=== PATIENT | female | born 2005 | race Caucasian/White ===

== ENCOUNTER 2025-01-30 02:48 | Observation (INO) ==
--- NOTE | 2025-01-30 03:14 | Emergency Department Note ---
Impression & Plan Vaginal laceration ED Provider Note CHIEF COMPLAINT: Vaginal bleeding HISTORY OF PRESENTING ILLNESS: The patient is a pleasant, 19-year-old female who arrives to the emergency department for evaluation of persistent severe vaginal bleeding. Patient reports she had intercourse for the first time earlier in the day, when she began to have heavy bleeding. She states she does believe she is to start her menstrual cycle, however, this is more severe than her normal cycle. She reports she has been having very large clots, and is soaking multiple pads. She denies pelvic pain, nausea, vomiting, or dysuria. She is well appearing, with tachycardia and otherwise stable vital signs. REVIEW OF SYSTEMS: See HPI for pertinent positives and pertinent negatives. ALLERGIES: See below MEDICATIONS: See below PAST MEDICAL HISTORY: See below PHYSICAL EXAM: VITALS: Vitals are noted on the nurse's note and reviewed by myself. Vital signs stable. GENERAL: 19-year-old female, in no acute distress, nondiaphoretic, well- developed well-nourished. SKIN: The skin was without rashes, erythema, edema, or bruising. HEAD: Normocephalic atraumatic. HEART: Tachycardia with regular rhythm without murmurs gallops or rubs. LUNGS: Clear to auscultation bilaterally without wheezes, rales or rhonchi. No retractions or accessory muscle use. ABDOMEN: Positive bowel sounds x 4. Soft, nontender, without masses or organomegaly. Fisher sign negative. No guarding or rebound tenderness. : Supervisor Shearing at bedside. Pelvic examination performed with blood pooling in the vaginal canal, laceration present to the left lateral vaginal wall, with active bleeding noted. MUSCULOSKELETAL: No muscle atrophy, erythema, or edema noted. Normal gait. Strength 5/5 throughout. NEURO: Patient was alert and oriented to person place and time. No focal neurological deficits. DIFFERENTIAL DIAGNOSIS: Etiologies such as threatened AB, miscarriage, ectopic , dysfunction uterine bleeding, bleeding dyscrasia, trauma, infection, as well as others were entertained. ED COURSE AND MEDICAL DECISION MAKING: MEDICATIONS GIVEN: 1 L NSS bolus, 4 mg IV morphine, 4 mg IV Zofran MONITOR: Continuous cardiac technician: Order was placed for continuous cardiac technician. Patient was placed on the cardiac technician and continuous pulse ox. Patient was noted to be in normal sinus rhythm at an initial rate of 130 bpm per my interpretation. INTERPRETATION OF LABS: I interpreted the labs with full lab results as below in the lab section of this note. Pertinent lab results discussed in the MDM section below. INTERPRETATION OF IMAGING: Imaging studies were interpreted by myself and read by radiology as per the imaging section of this note. CONSULTATIONS: Dr. Castelan, SERVICE CENTER COORDINATOR [facility] SUMMARY: The patient is a pleasant, 19-year-old female who arrives to the emergency department for evaluation of the above-stated complaint. Saline lock was established, lab work was obtained. CBC shows no leukocytosis, hemoglobin 11.4, hematocrit 35.6. CMP shows slight hypokalemia 3.4, otherwise unremarkable. hCG qualitative negative. Pelvic ultrasound imaging was obtained with findings consistent with likely large clot or hematoma which is displacing the uterus to the right. Pelvic examination was performed with nursing staff at bedside. Blood pooling noted in the vaginal canal, after using suction, there is a large visible laceration present to the left lateral vaginal wall with active bleeding noted. At that time I consulted SERVICE CENTER COORDINATOR, who was able to evaluate the patient at bedside. An attempt was made by SERVICE CENTER COORDINATOR, to repair the laceration at bedside, however the patient was unable to tolerate the procedure. She was provided IV morphine for pain. Decision was made to take the patient to the OR for better comfort and visualization of the patient and procedure. The patient stood up with nursing staff at bedside, and was able to ambulate into the restroom. While in the restroom, the patient had a syncopal episode causing her to fall and hit her face. The patient was assisted back to the bed. Event report was submitted. Head CT and face CT imaging was obtained which per my interpretation shows no ICH, fracture, or otherwise acute abnormality. The patient was transferred to the OR by OR staff, please refer to their documentation, as well as Dr. Castelan's documentation for further patient workup and care. DIAGNOSIS: Vaginal laceration The chart was completed utilizing [employer] Speech voice recognition software. Grammatical errors, random word insertions, pronoun errors, and incomplete sentences are an occasional consequence of this system due to software limitations, ambient noise, and hardware issues. Any formal questions or concerns about the content, text, or information contained within the body of this dictation should be directly addressed to the provider for clarification. Past Med/Surg History Problem List (Updated 02/02/25 @ 03:28 by AUSTIN Parikh) Vaginal laceration (Acute) Social History Smoking Status: Never smoker Tobacco Cessation Education Requested by Patient: No Hx Alcohol Use: No Hx Substance Use: No Preferred Language: [place] Communication Ability: Effective Medical Imaging Technologist Required: No Beliefs That Will Affect Care: None Current Living Situation: Spouse Feels Safe at Home: Yes Safety Concerns: Feels Safe At This Time Allergies Allergies Allergy/AdvReac Type Severity Reaction Status Date / Time No Known Allergies Allergy Unverified 01/30/25 07:20 Home Meds Previous Rx's Medication Instructions Recorded ibuprofen 600 mg tablet 600 mg PO Q6H #30 tabs 01/30/25 Results & Data (ED) Vital Signs Vital Signs - 24 hr 01/30/25 02:51 Temperature 36.4 C L Temperature Source Oral Pulse Rate 130 H Blood Pressure 103/75 Blood Pressure Mean 84 Pulse Oximetry 100 Oxygen Delivery Method Room Air Sepsis Recent Fever Within 48 Hours No Sepsis New/Unexplained Change in Mental Status No Sepsis Action Taken by Nursing No Action Required Home Medications Current Medication List: was personally reviewed by me Laboratory Data Attestation: I reviewed the patient's lab results. 01/30/25 08:32 01/30/25 03:19 Lab Results 01/30/25 01/30/25 01/30/25 Range/Units 03:14 03:19 06:20 WBC 9.89 (4.8-10.8) K/ul RBC 4.23 (4.20-5.40) M/uL Hgb 11.4 L (12.0-16.0) g/dl POC Hgb 10.2 L (12.0-16.0) g/dl Hct 35.6 L (37.0-47.0) % POC Hct 30 L (37-47) % MCV 84.2 (80.0-100.0) fL MCH 27.0 (25.0-34.0) pg MCHC 32.0 (32.0-36.0) g/dL RDW Std Deviation 38.0 (36.4-46.3) fL RDW Coeff of Rika 12.6 (11.5-14.5) % Plt Count 186 (130-400) K/uL MPV 11.4 (9.4-12.4) fL Immature Gran % (Auto) 0.4 % Neut % (Auto) 58.6 % Lymph % (Auto) 32.7 % Dunn % (Auto) 7.5 % Eos % (Auto) 0.1 % Baso % (Auto) 0.7 % Neut # (Auto) 5.80 (1.40-6.50) K/uL Lymph # (Auto) 3.23 (1.20-3.40) K/uL Dunn # (Auto) 0.74 H (0.11-0.59) K/uL Eos # (Auto) 0.01 (0.00-0.50) K/uL Baso # (Auto) 0.07 (0.00-0.20) K/uL Immature Gran # (Auto) 0.04 (0.01-0.20) K/uL POC Sodium 141 (135-144) mmol/L Sodium 137 (136-145) mmol/L POC Potassium 3.3 (3.3-5.0) mmol/L Potassium 3.4 L (3.5-5.1) mmol/L POC Chloride 110 (101-112) mmol/L Chloride 106 (98-107) mmol/L Carbon Dioxide 22 (21-32) mmol/L POC Total CO2 22 L (24-31) mmol/L Anion Gap 9 (3-11) POC Anion Gap 14.0 L (16-25) mmol/L POC BUN 13 (7-18) mg/dl BUN 14 (6-23) mg/dl Creatinine 0.74 (0.6-1.2) mg/dl POC Creatinine 0.7 mg/dl Est Cr Clr Drug Dosing Not Reportable eGFR 119.45 BUN/Creatinine Ratio 18.9 (10-20) Glucose 111 H (70-99(Fasting)) mg/dl POC Glucose (other) 98 (70-99) mg/dl Calcium 9.6 (8.6-10.3) mg/dl POC Ioniz Calcium Tiff 1.14 mmol/l Total Bilirubin 0.9 (0.2-1.0) mg/dl AST 14 (13-39) U/L ALT 7 (7-52) U/L Alkaline Phosphatase 41 (34-104) U/L Total Protein 7.9 (6.0-8.3) gm/dl Albumin 5.0 (3.4-5.0) gm/dl Globulin 2.9 (2.5-4.0) gm/dl Albumin/Globulin Ratio 1.7 (0.9-2) HCG, Qual Negative (Negative) Blood Type A Positive Antibody Screen NEGATIVE Administered Medications Discontinued Medications Fentanyl Citrate (Fentanyl Citrate Pf 100 Mcg/2 Ml Vial) 25 mcg IV Q5M PRN PRN Reason: PACU Use Only-Pain Stop: 01/30/25 15:14 Last Admin: 01/30/25 08:34 Dose: 25 mcg Documented By: SNT Sodium Chloride (Nss) 1,000 mls @ 999 mls/hr IV .Q1H1M ONE Stop: 01/30/25 05:13 Last Infusion: 01/30/25 05:18 Dose: Infused Documented By: Admin: 01/30/25 04:17 Dose: 999 mls/hr Documented By: PAM Lactated Ringer's (Lr) 1,000 mls @ 15 mls/hr IV .Q24H EVERARDO Stop: 02/02/25 06:29 Last Infusion: 01/30/25 07:13 Dose: Infused Documented By: JRRavindra Admin: 01/30/25 07:02 Dose: 15 mls/hr Documented By: JUAN A Ibuprofen (Ibuprofen 600 Mg Tab) 600 mg PO Q6H PRN PRN Reason: Pain Scale 1,2,3,4,5 Stop: 01/31/25 08:19 Last Admin: 01/30/25 10:22 Dose: 600 mg Documented By: TMF Lidocaine HCl (Lidocaine 1% Local 20 Ml Vial) Confirm Administered Dose 1 ml .ROUTE .STK-MED ONE Stop: 01/30/25 06:00 Last Admin: 01/30/25 06:25 Dose: Not Given Documented By: PAM Lidocaine/Epinephrine (Lidocaine 1%/Epinephrine 1:100,000 50 Ml Vial) Confirm Administered Dose 50 ml .ROUTE .STK-MED ONE Stop: 01/30/25 06:45 Last Admin: 01/30/25 08:15 Dose: Not Given Documented By: CLF Morphine Sulfate (Morphine Sulfate 4 Mg/Ml 1 Ml Carp\Vial) 4 mg IV NOW STA Stop: 01/30/25 05:53 Last Admin: 01/30/25 06:00 Dose: 4 mg Documented By: PAM Ondansetron HCl (Ondansetron Inj 2 Mg/Ml 2 Ml Vial) 4 mg IV NOW STA Stop: 01/30/25 05:53 Last Admin: 01/30/25 06:00 Dose: 4 mg Documented By: PAM Vasopressin (Vasopressin 20 Unit/Ml Vial) Confirm Administered Dose 20 units .ROUTE .STK-MED ONE Stop: 01/30/25 06:45 Last Admin: 01/30/25 08:16 Dose: Not Given Documented By: MAGO Imaging Data Attestation: I personally reviewed and interpreted this imaging study as follows: Head Trauma GCS Score: 15 Discharge Plan Visit Data Chief Complaint: Vaginal Bleeding Stated Complaint: VAGINAL BLEEDING ED Provider: Lee Feng ED Midlevel Provider: Quynh Segal Discharge Problem: Vaginal laceration Patient Disposition: Home - Self-Care Condition: Critical
[2025-01-30 03:34] LABS: Hematocrit (blood only) 35.6 % (37.0-47.0); Hemoglobin 11.4 g/dl (12.0-16.0); Immature Granulocytes # (auto) 0.04 K/uL (0.01-0.20); Immature Granulocytes % (auto) 0.4 %; Mean Corpuscular Hemoglobin 27.0 pg (25.0-34.0); Mean Corpuscular Volume 84.2 fL (80.0-100.0); Platelet Count 186 K/uL (130-400); RDW Standard Deviation 38.0 fL (36.4-46.3); Red Blood Count 4.23 M/uL (4.20-5.40); White Blood Count 9.89 K/ul (4.8-10.8)
[2025-01-30 03:55] LABS: Pregnancy Test, Serum Negative (Negative)
[2025-01-30 03:57] LABS: Alanine Aminotransferase 7 U/L (7-52); Albumin Globulin Ratio 1.7 (0.9-2); Albumin Level 5.0 gm/dl (3.4-5.0); Alkaline Phosphatase 41 U/L (34-104); Anion Gap 9 (3-11); Bilirubin,Total 0.9 mg/dl (0.2-1.0); Blood Urea Nitrogen 14 mg/dl (6-23); Calcium 9.6 mg/dl (8.6-10.3); Carbon Dioxide 22 mmol/L (21-32); Chloride 106 mmol/L (98-107); Globulin 2.9 gm/dl (2.5-4.0); Glucose 111 mg/dl (70-99(Fasting)); Potassium 3.4 mmol/L (3.5-5.1); Sodium 137 mmol/L (136-145); Total Protein 7.9 gm/dl (6.0-8.3)
[2025-01-30] MEDS: SODIUM CHLORIDE 0.9% 1,000 ML IV ONE (04:17)
--- NOTE | 2025-01-30 04:59 | Ultrasound Report ---
EXAM: US pelvic complete CLINICAL HISTORY: Acute onset of heavy vaginal bleeding. Patient denies passing clots.?-hCG result was pending at the time of evaluation. TECHNIQUE: Ultrasound examination of the pelvis was performed using a transabdominal approach with real-time grayscale and color Doppler evaluation. The vascular flow was evaluated using color flow and a spectral pattern of the flow waveform. COMPARISON: None. FINDINGS: Uterus: The uterus measures 8.2 × 4.2 × 4.7 cm. The uterus appears anteverted with homogeneous myometrial echotexture. No discrete uterine masses or fibroids are identified. A nabothian cyst is noted within the cervix, measuring 1.8 × 1.5 × 1.4 cm. Endometrial thickness measures 1.2 cm. Vaginal Canal: A heterogeneous, avascular echogenic structure, measuring approximately 6.9 × 3.5 × 5.4 cm, is seen within the vaginal canal and is consistent with a large, nonvascular clot. This collection displaces the uterus toward the right adnexal region. No associated internal vascularity or fluid-fluid level is present to suggest active bleeding. Right Ovary: Measures 3.3 × 1.8 × 1.5 cm. Normal morphology and echotexture are demonstrated. Normal color Doppler flow is seen. No cysts or solid masses are observed. Left Ovary: Measures 2.5 × 1.4 × 2.6 cm. Normal morphology and echotexture are demonstrated. Normal vascular flow is observed. No cysts or solid masses are seen. Adnexa / Cul-de-sac: No adnexal mass or abnormal free fluid is visualized. Urinary Bladder: The bladder wall appears normal in thickness. No intraluminal mass, calculus, or debris is noted. IMPRESSION: 1. Large, heterogeneous, avascular collection within the vaginal canal (6.9 × 3.5 × 5.4 cm), most consistent with a blood clot or hematoma, displacing the uterus to the right. 2. No vascularity to suggest active bleeding, vascular malformation, or retained products on this limited transabdominal study. 3. Possible differentials include retained blood or clot related to acute dysfunctional uterine bleeding, post-menstrual hematocolpos, cervical or endometrial polyp (less likely as there is no vascularity), or early -related event if ?-hCG is positive (threatened or incomplete ). 4. Nabothian cyst (1.8 cm) in the cervix, benign and incidental. 5. Bilateral ovaries are normal with preserved vascularity; no cyst, torsion, or mass is present. RECOMMENDATIONS: Correlate with clinical findings and pending ?-hCG to exclude early or incomplete miscarriage. Gynecologic evaluation is advised for clot evacuation and further assessment once the vaginal canal clears. Repeat transvaginal ultrasound is recommended after resolution of the clot for detailed endometrial and cervical evaluation. Monitor hemoglobin/hematocrit and ongoing bleeding pattern. Electronically signed by Aren Liz 01-30-2025 04:58 AM
[2025-01-30] MEDS: ONDANSETRON INJ 2 MG/ML 2 ML VIAL IV STA (06:00)
[2025-01-30] MEDS: MoRPHine SULFATE 4 MG/ML 1 ML CARP\\VIAL IV STA (06:00)
[2025-01-30] MEDS ORDERED: SODIUM CHLORIDE 0.9% 1,000 ML IV SCH (06:00)
[2025-01-30] MEDS: LIDOCAINE 1% LOCAL 20 ML VIAL ONE (06:25)
--- NOTE | 2025-01-30 06:31 | History & Physical Report ---
Date of Service January 30, 2025 Assessment & Plan (1) Vaginal laceration: Plan: Will take patient to the OR for repair of laceration History of Present Illness Chief Complaint: vaginal bleeding Primary Care Provider: [facility] 19 F P0000 arrived in the ER brought in by boyfriend with vaginal bleeding following intercourse. Bleeding heavy with passage of large clots. Allergies Allergy/AdvReac Type Severity Reaction Status Date / Time No Known Allergies Allergy Unverified 01/30/25 07:20 Patient History Social History Smoking Status: Never smoker Feels Safe at Home: Yes WARP TIER History neg regular menses no contraception Review of Systems All systems reviewed & are unremarkable except as noted in HPI & below Physical Exam Constitutional: WD/WN, vitals as above Eyes: PERRL, conjunctivae normal, anicteric sclerae Respiratory: normal respiratory effort Cardiovascular: Rate/Rhythm: regular rate and regular rhythm Gastrointestinal (Abdomen): Inspection/Auscultation: abdomen normal to inspection Musculoskeletal: Extremities: extremities normal to inspection Skin: no rashes, warm and dry Neurologic: patellar DTR's 2+ bilat, sensation intact Psychiatric: A+Ox3, euthymic affect Genitourinary: no vaginal lesions, no adnexal mass Speculum/Bimanual Exam: normal appearance of the vagina clots evacuated from vagina laceration of left vaginal sidewall bleeding Results & Data Vital Signs (Past 12 Hours) Vital Signs Temp Pulse Resp BP Pulse Ox O2 Del Method 01/30/25 04:45 88 18 112/83 99 01/30/25 02:51 36.4 C L 130 H 103/75 100 Room Air (1) Vaginal laceration Encounter type: initial encounter Foreign body presence: without foreign body Perineal laceration presence: without perineal laceration Vaginal laceration type: non-obstetric Qualified Code(s): S31.41XA - Laceration without foreign body of vagina and vulva, initial encounter
[2025-01-30] MEDS ORDERED: ALBUMIN HUMAN 5% 12.5 GM/250 ML VIAL IV ONE (06:37)
[2025-01-30] MEDS ORDERED: SUCCINYLCHOLINE CHLORIDE 20 MG/ML 10 ML VIAL IV ONE (06:42)
[2025-01-30] MEDS ORDERED: PROPOFOL IV EMULSION 10 MG/ML 20 ML VIAL IV ONE (06:42)
[2025-01-30] MEDS ORDERED: LIDOCAINE 2% 2 ML VIAL/AMP(20MG/ML) INFIL ONE (06:42)
[2025-01-30] MEDS ORDERED: ROCURONIUM BROMIDE 10 MG/ML 5 ML VIAL IV ONE (06:42)
[2025-01-30] MEDS ORDERED: MIDAZOLAM HCL 1 MG/ML 2ML VIAL ONE (06:43)
[2025-01-30] MEDS: LACTATED RINGER'S 1,000 ML IV SCH (07:02)
[2025-01-30] MEDS ORDERED: ONDANSETRON INJ 2 MG/ML 2 ML VIAL IV PRN ×3 (07:04→08:20)
--- NOTE | 2025-01-30 07:05 | Anesthesiology Consultation ---
Date of Service January 30, 2025 Assessment & Plan Chart Review Chart Review: Acceptable Risk for Surgery and Patient NOT seen in Pre Admission Testing Consults Requested none ASA [id number] Proposed Anesthesia Anesthesia Type: General Risk / Benefits Reviewed With: PT / POA / Parent / Guardian, Accepts Plan and Informed Consent Obtained Additional Comments: Patient BP 104/46 in trendelenberg. Patient responsive and understanding of situation however is sedated due to morphine. Patient appears pale - will check H/H prior to procedure. History Surgery Operation Date: 01/30/25 08:20 Proposed Procedures p Vaginal Laceration - Roly Castelan MD Height/Weight Height: 5 ft 8 in Medications Active Medications Generic Name Dose Route Start Last Admin Trade Name Freq PRN Reason Stop Dose Admin Lactated Ringer's 1,000 mls @ 15 mls/hr 01/30/25 06:30 01/30/25 07:02 Lr IV 02/02/25 06:29 15 mls/hr .Q24H EVERARDO Administration NPO Date Last Intake of Fluids: 01/30/25 Time Last Intake of Fluids: 01:30 Date Last Intake of Solids: 01/29/25 Time Last Intake of Solids: 12:00 Exercise / Class Metabolic Activity 1 > 8 Run/Swim/Ski/Tennis Past Anesthesia History No Hx of Anesthesia Complications and No Family Hx of Anesthesia Complications History of PONV No Hx of PONV and No Hx of Motion Sickness Social History Smoking Status: Never smoker Review of Systems ROS Unobtainable: All systems reviewed & are unremarkable except as noted in HPI & below Physical Exam Vital Signs Last Vital Signs Temp 36.8 C 01/30/25 06:54 Pulse 65 01/30/25 06:54 Resp 24 01/30/25 06:54 BP 87/37 L 01/30/25 06:54 Pulse Ox 96 01/30/25 06:54 O2 Del Method Room Air 01/30/25 06:54 ENMT Mouth: no TMJ abnormality Thyromental Distance: > or= 3.5 Finger Breadths Mallampati Class: II Neck normal visual inspection and trachea midline; neck extension not limited Respiratory normal respiratory effort Auscultation: lungs clear to auscultation bilaterally Cardiovascular Rate/Rhythm: regular rate and regular rhythm Heart Sounds: no murmur Musculoskeletal Spine: normal cervical ROM Extremities: full ROM of extremities Neurologic moves all extremities Psychiatric Orientation: alert and oriented x 3 Testing Laboratory Results 01/30/25 03:19 01/30/25 03:19 Blood Type A Positive 01/30/25 03:14 Antibody Screen NEGATIVE 01/30/25 03:14 01/30/25 06:20 POC Glucose (other) 98
[2025-01-30] MEDS ORDERED: ATROPINE SULFATE 0.1 MG/ML 10ML SYR IV PRN (07:14)
[2025-01-30] MEDS ORDERED: ONDANSETRON INJ 2 MG/ML 2 ML VIAL ONE (07:48)
[2025-01-30] MEDS ORDERED: DEXAMETHASONE SOD INJ 4 MG/ML VIAL ONE (07:48)
--- NOTE | 2025-01-30 07:55 | CT Scan Report ---
EXAM: CT head/brain wo con CLINICAL HISTORY: Fall. TECHNIQUE: Axial non-contrast CT scan of the brain was performed from the skull base to the high parietal region. One of the following dose reduction techniques was utilized for this exam: automated exposure control, adjustment of the mA and/or kV according to patient size, and use of iterative reconstruction. COMPARISON: None. FINDINGS: Brain Parenchyma: There is normal attenuation of the cerebral hemispheres, cerebellum, and brainstem. There is no evidence of acute infarct, hemorrhage, or mass effect. There are no abnormal areas of hypoattenuation or hyperattenuation. Ventricular System: The ventricles are normal in size and configuration. There is no evidence of hydrocephalus or ventricular enlargement. Subarachnoid Spaces: The sulci and cisterns are normal. There is no evidence of subarachnoid hemorrhage or extra-axial fluid collections. Cerebellum and Brainstem: There are no masses, lesions, or areas of abnormal density. Orbits: There is a normal appearance of the globes, optic nerves, and extraocular muscles. There is no evidence of orbital masses or abnormal density. Sinuses: The paranasal sinuses are clear. There is no evidence of sinusitis or mucosal thickening. Mastoid Air Cells: The mastoid air cells are clear. There is no evidence of mastoiditis. Skull: There is normal skull morphology. IMPRESSION: Motion artifact is present. However, this is an unremarkable CT of the head without contrast. No hemorrhagic densities or definite fracture lines are seen. Electronically signed by Aren Liz 01-30-2025 07:52 AM
--- NOTE | 2025-01-30 07:55 | CT Scan Report ---
EXAM: CT facial bones wo con CLINICAL HISTORY: Fall. TECHNIQUE: Non-contrast CT scan of the paranasal sinuses was performed, with sagittal and coronal multiplanar reconstruction. One of the following dose reduction techniques was utilized for this examination: automated exposure control, adjustment of the mA and/or kV according to patient size, and use of iterative reconstruction. COMPARISON: None. FINDINGS: Sinuses: There is mild basal mucosal thickening of both maxillary sinuses. Otherwise, all paranasal sinuses are clear. There is no evidence of sinusitis, mucosal thickening, or fluid levels. The osteomeatal complexes are patent. Nasal Cavity: There is midline separation of the nasal bone, likely due to an unfused suture rather than a fracture; correlation with the maximum point of tenderness is advised. The nasal septum is deviated to the left. There is mild hypertrophy of the inferior nasal turbinates. There are no masses, polyps, or other deviations. Orbits: The orbits are normal in size and shape. The extraocular muscles and optic nerves are normal. There is no evidence of orbital masses or proptosis. Maxilla and Mandible: The maxillary and mandibular bones appear normal. There are no fractures, lytic, or sclerotic lesions. The dentition is normal without significant periodontal disease. Facial Bones: There are no fractures or deformities. The zygomatic arches, nasal bones, and other facial structures are intact. Soft Tissues: The soft tissues of the face are normal. There are no abnormal masses, swelling, or lymphadenopathy. Salivary Glands: The parotid, submandibular, and sublingual glands are normal. There is no evidence of sialadenitis or masses. Temporomandibular Joints (TMJ): The temporomandibular joints appear normal bilaterally. There is no evidence of joint effusion, degenerative changes, or dislocation. IMPRESSION: 1. Midline separation of the nasal bone, likely due to an unfused suture rather than a fracture; correlation with the maximum point of tenderness is advised. 2. Otherwise, a normal CT of the maxillofacial region without contrast. Electronically signed by Aren Liz 01-30-2025 07:54 AM
[2025-01-30] MEDS ORDERED: FERRIC SUBSULFATE 8 ML VIAL TOP ONE (08:00)
[2025-01-30] MEDS: LIDOCAINE 1%/EPINEPHRINE 1:100,000 50 ML VIAL ONE (08:15)
[2025-01-30] MEDS: VASOPRESSIN 20 UNIT/ML VIAL ONE (08:16)
--- NOTE | 2025-01-30 08:30 | Operative Report ---
Post Operative Report Pre & Post Diagnosis Operation Date: 01/30/25 08:20 Pre-Op Diagnosis: Vaginal Bleeding Post-Op Diagnosis: Vaginal Bleeding I identified the patient and participated in the time-out.: Yes Procedure Operation Date: 01/30/25 08:20 Actual Procedures p Repair of left vaginal wall Laceration(Not Applicable) - Roly Castelan MD Surgeon Frederic Sims MD Carpet Sewing Machine Operator Sachin Castelan Estimated Blood Loss 10 Findings Consistent with Post-Op Diagnosis Normal female escutcheon. Small vaginal laceration on the right hymenal ring which is not bleeding. There is a 2 inch vaginal laceration on the left lateral vaginal wall. There was a large blood clot which was tamponade and the bleeding from the site. Once blood clot was removed there was minimal bleeding seen the laceration site. Cervix is seen and appears grossly normal rest of the vagina is unremarkable. Fluids IVF; 1100Ml EBL: 10ml Urine; 10ml Specimens None Drains None Anesthesia Type General Indications Acute blood loss from vaginal laceration. Description of Procedure Patient is prepped and draped in normal sterile fashion in dorsolithotomy position. Bladder was catheterized and 50 cc of clear urine is obtained. Findings of the vulva and vagina is as dictated above. Vaginal retractors are placed in the vagina and laceration on the left vaginal wall is repaired in layers with 2-0 Vicryl. There is good hemostasis after the repair. All instruments are removed from the vagina and accounted for x 2 including sponges needles and retractors. Patient is in recovery in stable condition. I attest to the content of the Intraoperative Record and any orders documented therein. Any exceptions are noted below. Carpet Sewing Machine Operator was necessary for retraction and manipulation of instruments in order to provide for a safe operation
[2025-01-30] MEDS ORDERED: MICONAZOLE NITRATE 2% CR 30 GM TUBE EXT SCH (09:00)
[2025-01-30 09:15] VITALS: TEMP 98.2
--- NOTE | 2025-01-30 10:06 | Anesthesiology Progress Note ---
Date of Service January 30, 2025 Anesthesia Post Procedure Vital Signs Vital Signs: Temp Pulse Pulse Pulse Resp BP BP 01/30/25 09:30 71 19 113/65 01/30/25 09:10 36.8 C 72 19 112/60 01/30/25 09:00 88 16 108/63 01/30/25 08:50 85 16 120/61 01/30/25 08:40 78 18 128/66 01/30/25 08:30 78 16 126/62 01/30/25 08:20 36.2 C L 100 H 18 119/56 L 01/30/25 07:09 104/46 L 01/30/25 06:54 36.8 C 65 24 87/37 L 01/30/25 06:33 64 18 101/72 01/30/25 06:18 54 L 20 78/33 L 01/30/25 04:45 88 18 112/83 01/30/25 02:51 36.4 C L 130 H 103/75 Pulse Ox O2 Del Method O2 Flow Rate 01/30/25 09:30 100 Room Air 01/30/25 09:10 100 Room Air 01/30/25 09:00 97 Room Air 01/30/25 08:50 100 Room Air 01/30/25 08:40 98 Room Air 01/30/25 08:30 100 Room Air 01/30/25 08:20 100 Oxymask 5 01/30/25 07:09 01/30/25 06:54 96 Room Air 01/30/25 06:33 99 01/30/25 06:18 100 01/30/25 04:45 99 01/30/25 02:51 100 Room Air Pain Intensity Vaginal: Pain Intensity: 1 Transfer of Care Handoff Completed per policy Notes Mental Status: alert / awake / arousable Patient Amnestic to Procedure: Yes Nausea / Vomiting: adequately controlled Pain: adequately controlled Airway Patency, RR, SpO2: stable & adequate BP & HR: stable & adequate Hydration State: stable & adequate Anesthetic Complications: no major complications apparent and Pt Satisfied with anesthetic care
[2025-01-30 10:10] VITALS: BP 135/68; PULSE 88; RESP 16; O2SAT 98
[2025-01-30] MEDS: IBUPROFEN 600 MG TAB PO PRN (10:22)
[2025-01-30 10:35] LABS: Hematocrit (blood only) 26.3 % (37.0-47.0); Hemoglobin 8.8 g/dl (12.0-16.0); Mean Corpuscular Hemoglobin 28.3 pg (25.0-34.0); Mean Corpuscular Volume 84.6 fL (80.0-100.0); Platelet Count 152 K/uL (130-400); RDW Standard Deviation 38.3 fL (36.4-46.3); Red Blood Count 3.11 M/uL (4.20-5.40); White Blood Count 11.15 K/ul (4.8-10.8)
== END 2025-01-30 12:40 | disposition home health service (06) ==
LOC: ED 02:48 → ASU 06:43 → 4E1 06:43 → ASU 07:35
DX: S31.41XA Laceration without foreign body of vagina and vulva, initial encounter